=== PATIENT | male | born 1995 | race Asian ===

== ENCOUNTER 2018-09-02 08:22 | Emergency (ER) | payer OTHER ==
[2018-09-02] MEDS ORDERED: Silver Sulfadiazine 1% Crm 50 GM Tube TOP ONE (08:48)
[2018-09-02] MEDS ORDERED: Diphtheria,Pertussis(Acell),Tetanus Vaccine 0.5 ML SDV IM ONE (08:48)
--- NOTE | 2018-09-02 09:01 | EDM.PDOC ---
ED HPI GENERAL MEDICAL PROBLEM - General Chief Complaint: Burn Stated Complaint: BURN ON RIGHT ARM Time Seen by Provider: 09/02/18 08:45 Source of Information: Reports: Patient History Limitations: Reports: No Limitations - History of Present Illness INITIAL COMMENTS - FREE TEXT/NARRATIVE: This 23 yo male patient reports to the ED with a burn to his right arm (elbow to wrist) with blistering. The patient reports he works at [employer] and was taking a ryan of water off the stove when it splashed on his arm. The incident happened 2 days ago. The patient has not popped the blisters. The patient reports he has not had a Tetanus injection in the past 7 years. Onset Date: 08/31/18 Duration: Constant Location: Reports: Upper Extremity, Right Quality: Reports: Ache, Dull Severity: Moderate Improves with: Reports: None Worsens with: Reports: None Context: Reports: Other - Related Data Allergies Allergy/AdvReac Type Severity Reaction Status Date / Time No Known Allergies Allergy Verified 09/02/18 08:27 Home Meds: Home Meds . [No Known Home Meds] 09/02/18 [History] Social & Family History - Family History Family Medical History: Noncontributory - Tobacco Use Smoking Status *Q: Current Some Day Smoker Years of Tobacco use: 4 Packs/Tins Daily: 0.1 Second Hand Smoke Exposure: Yes - Caffeine Use Caffeine Use: Reports: Soda - Recreational Drug Use Recreational Drug Use: No ED ROS GENERAL - Review of Systems Review Of Systems: ROS reveals no pertinent complaints other than HPI. ED EXAM, BURN/SMOKE INHALATION - Physical Exam Exam: See Below Exam Limited By: No Limitations General Appearance: Alert, WD/WN, Moderate Distress Eye Exam: Bilateral Eye: EOMI, Normal Inspection, PERRL Ears (Abbreviated): Normal External Exam, Normal Canal, Hearing Grossly Normal, Normal TMs Nose: Left Anterior: Normal Inspection, Normal Mucosa, No Blood, Left Posterior : Normal Inspection, Normal Mucosa, No Blood, Right Anterior: Normal Inspection , Normal Mucosa, No Blood, Right Posterior: Normal Inspection, Normal Mucosa, No Blood Mouth/Throat: No Symptoms Reported Head: No Symptoms Neck: No Symptoms Respiratory: No Respiratory Distress, Lungs Clear, Normal Breath Sounds, No Accessory Muscle Use, Chest Non-Tender Cardiovascular: Normal Peripheral Pulses, Regular Rate, Rhythm, No Edema, No Gallop, No JVD, No Murmur, No Rub GI/Abdominal: Normal Bowel Sounds, Soft, Non-Tender, No Organomegaly, No Distention, No Abnormal Bruit, No Mass (Male) Exam: Deferred Rectal Exam: Deferred Back Exam: Normal Inspection, Full Range of Motion, NT Extremities: No Pedal Edema, Normal Capillary Refill, Arm Pain (right forearm burn (partial thickness) with blistering ) Neurological: Alert, Oriented, CN II-XII Intact, Normal Cognition, Normal Gait, Normal Reflexes, No Motor/Sensory Deficits Psychiatric: Normal Affect, Normal Mood Skin Exam: Other Lymphatic: No Adenopathy Course - Vital Signs Last Recorded V/S: Last Vital Signs Temp 36.3 C 09/02/18 08:33 Pulse 77 09/02/18 08:33 Resp 14 09/02/18 08:33 BP 136/86 09/02/18 08:33 Pulse Ox 99 09/02/18 08:33 - Orders/Labs/Meds Orders: Active Orders 24 hr Category Date Time Status Vaccines to be Administered [RC] PER UNIT ROUTINE Care 09/02/18 08:48 Ordered Meds: Medications Discontinued Medications Generic Name Dose Route Start Last Admin Trade Name Freq PRN Reason Stop Dose Admin Diphtheria/Tetanus/Acell Pertussis 0.5 ml 09/02/18 08:48 Adacel IM 09/02/18 08:49 .ONCE ONE Silver Sulfadiazine 1 gm 09/02/18 08:48 Silvadene 1% Cream 50 Gm TOP 09/02/18 08:49 ONETIME ONE Departure - Departure Time of Disposition: 08:57 Disposition: Home, Self-Care 01 Condition: Fair Clinical Impression: Partial thickness burn of right forearm Qualifiers: Encounter type: initial encounter Qualified Code(s): T22.211A - Burn of second degree of right forearm, initial encounter - Discharge Information *PRESCRIPTION DRUG MONITORING PROGRAM REVIEWED*: Not Applicable *COPY OF PRESCRIPTION DRUG MONITORING REPORT IN PATIENT SALMA: Not Applicable Instructions: Burn Care, Adult, [id number] Forms: ED Department Discharge Care Plan Goals: The patient was advised of the examination results during the visit. The patient 's burn was dressed after application of Silvadene Cream. The patient was discharged with a script for Silvadene Cream 1% (#50 gram) to apply a thin layer to the affected area 2 times per day as needed. The patient was encouraged to keep the area covered. If the patient has any additional symptoms or concerns, the patient should either visit his primary care facility or return to the emergency department. - My Orders Last 24 Hours: My Active Orders 09/02/18 08:48 Vaccines to be Administered [RC] PER UNIT ROUTINE - Assessment/Plan Last 24 Hours: My Active Orders 09/02/18 08:48 Vaccines to be Administered [RC] PER UNIT ROUTINE
== END 2018-09-02 09:07 | disposition home or self-care (01) ==
LOC: DL.ED 08:22
DX: T22.211A Burn of second degree of right forearm, initial encounter (principal); Z23 Encounter for immunization; F17.210 Nicotine dependence, cigarettes, uncomplicated; X19.XXXA Contact with other heat and hot substances, initial encounter
CPT/HCPCS: 16020; 90471; 90715; 99282; A9270